=== PATIENT | female | born 1970 | race Caucasian/White ===

== ENCOUNTER 2017-02-23 09:58 | Day surgery (SDC) | payer OTHER ==
[~2017-02-23] VITALS: Ht 152.4 cm; Wt 61.9 kg
[2017-02-23] MEDS ORDERED: SYN75 PO (10:55)
[2017-02-23] MEDS ORDERED: OMEP40CA6 PO (10:57)
[2017-02-23 11:05] VITALS: BP 119/76; PULSE 66; RESP 15
[2017-02-23] MEDS ORDERED: MIDAZOLAM 1 MG/ML 2 ML INJ ONE ×2 (12:02→12:03)
[2017-02-23] MEDS ORDERED: FENTAnyl 50 MCG/ML VIAL ONE (12:03)
--- NOTE | 2017-02-23 18:06 | GILP ---
DATE OF PROCEDURE: 02/23/2017 NAME OF PROCEDURES: 1. Esophagogastroduodenoscopy and biopsy. 2. Colonoscopy. SURGEON: Krystle Montano MD PREOPERATIVE DIAGNOSIS: 1. Positive occult blood in stool. 2. Abdominal pain. POSTOPERATIVE DIAGNOSES: 1. Hiatal hernia. 2. Gastroesophageal reflux disease. 3. Gastritis with erosions. 4. Biopsy was positive for Helicobacter pylori test. 5. Colonoscopy all the way to the cecum. 6. Internal and external hemorrhoids. 7. No colon neoplasm was identified. INDICATION FOR THE PROCEDURE: Ms. Silvia Blackwood is a 44-year-old female patient who had pos itive occult blood in stool. The patient also had upper abdominal pain not responding to therapy. The patient was scheduled for endoscopy and colonoscopy for further evaluation. The procedures and possible complications were well explained to the patient. The patient understoo d and consented to the procedure. DESCRIPTION OF PROCEDURE: Under the influence of fentanyl and Versed, the gastroscope was carefully introduced into the esophagus and under direct vision, it was advanced to the stomach and through t he pylorus into the duodenal bulb and descending duodenum. FINDINGS: ESOPHAGUS: The patient had hiatal hernia and gastroesophageal reflux disease. STOMACH: She had gastritis with erosions. Biopsy was positive for Helicobacter pylori infection. DUODENUM: Normal. The colonoscope was carefully introduced in the rectum and under direct vision, it was advanced all the way to the cecum. FINDINGS: The patient had internal and external hemorrhoids. No colon neoplasm was identified. She tolerated the procedures very well and there was no complication from the procedures. At the en d of the procedures, she was awake with stable vital signs and she was discharged home to the care o f her family. IMPRESSION: Please see postoperative diagnosis. PLAN: 1. Zantac 300 mg p.o. b.i.d. for 14 days. 2. Doxycycline 100 mg p.o. b.i.d. for 14 days. 3. Flagyl 500 mg p.o. b.i.d. for 14 days. 4. Pepto-Bismol 2 tablets p.o. q.i.d. for 14 days. Dictated By: KRYSTLE SAMPSON/SUMIT Conf#: [id number] DID#: [id number]
--- NOTE | 2017-02-25 10:55 | CONS ---
DATE OF ADMISSION: 02/23/2017 DATE OF CONSULTATION: TYPE OF CONSULTATION: Preoperative gastroenterology. Dear Dr. Owens: I thank you very much for this kind referral. HISTORY OF PRESENT ILLNESS: Ms. Silvia Blackwood is a 44-year-old female patient who has been referred to me for further evaluation of positive occult blood in stool. There is no past history o f colon neoplasm or inflammatory bowel disease. Her appetite has been good and she is not losing an y weight. The patient also complains of upper abdominal pain, not responding to symptomatic medical therapy. There is no definite past history of peptic ulcer disease. She is not taking any nonster oidal anti-inflammatory agents. There is no history of gallstones. She does not have any fever, ch ills, or jaundice. There is no history of liver disease. She is not a hypertensive or diabetic. S he does not have any heart disease or lung problem. There is no history of kidney disease. SOCIAL HISTORY: She is a nonsmoker. She does not abuse alcohol. FAMILY HISTORY: Negative for gastrointestinal tract neoplasm. ALLERGIES: THERE IS NO HISTORY OF SIGNIFICANT DRUG ALLERGY. MEDICATIONS: None. PHYSICAL EXAMINATION: VITAL SIGNS: She is 5 feet tall and she weighs 140 pounds. HEART: Examination of the heart reveals normal first and second heart sounds. LUNGS: Clear. ABDOMEN: Soft without any distention. Liver and spleen are not palpable. There are no masses. Th ere is no focal tenderness. Normal bowel sounds are heard. CENTRAL NERVOUS SYSTEM: Does not reveal any focal neurological deficit. IMPRESSION: 1. This positive occult blood in stool. 2. The patient never had screening colonoscopy. 3. Upper abdominal pain, not responding to therapy. PLAN: 1. Omeprazole 40 mg p.o. q.a.m. 2. Colonoscopy and upper endoscopy for further evaluation. The procedures and possible complications are well explained to the patient. She understands and co nsents to the procedures. I thank you once again. With warmest personal regards, Dictated By: KRYSTLE GALE MD GD/NTS Conf#: [id number] DID#: [id number] CC: KRYSTLE GALE MD;*EndCC*
== END 2017-02-23 13:02 | disposition home or self-care (01) ==
LOC: GIL 09:58
PROVIDERS: ATTEND Internal Medicine Gastroenterology
DX: K92.1 Melena (principal); B96.81 Helicobacter pylori [H. pylori] as the cause of diseases classified elsewhere; K44.9 Diaphragmatic hernia without obstruction or gangrene; K21.9 Gastro-esophageal reflux disease without esophagitis; K29.60 Other gastritis without bleeding; K64.8 Other hemorrhoids; K64.4 Residual hemorrhoidal skin tags
CPT/HCPCS: 43239; 45378; 87081; J2250; J3010; Z7610